=== PATIENT | female | born 1970 | race Caucasian/White ===

== ENCOUNTER → 2016-12-07 | Outpatient (CLI) | payer BC, OTHER ==
[~2016-12-07] MED LIST: OXYC-57 PO
--- NOTE | 2016-12-07 19:21 | DIAGNOSTIC IMAGING REPORT ---
MRI OF THE RIGHT SHOULDER CLINICAL HISTORY: Right shoulder pain. COMPARISON STUDY: No priors. TECHNIQUE: MRI of the right shoulder was performed utilizing various T1 and T2 weighted sequences in the axial, sagittal, coronal planes. IV contrast was not administered for this examination. Note that interpretation is suboptimal without plain film correlate. The examination is degraded by motion artifact. FINDINGS: Rotator cuff: There is tendinopathy with partial-thickness tearing of the supraspinatous tendon. No full-thickness tear is seen. The infraspinatus shows similar findings. There is also thickening and partial-thickness tearing seen involving the subscapularis tendon, best seen on sagittal image #10. The teres minor tendon is intact. There is trace subacromial and subdeltoid bursal fluid. The acromioclavicular joint is unremarkable. Biceps tendon: The long head of the biceps tendon is normal in signal intensity and located within the bicipital groove. The anchor is maintained. Labrum: Grossly intact. Shoulder joint: There is no joint effusion. The articular cartilage over the glenoid is well maintained. There is mild arthritic change marrow edema seen within the anterior aspect of the humeral head. There is no MRI evidence of fracture. Musculature and soft tissues: There is mild edema within the body of the infraspinatus. No muscular atrophy is seen. IMPRESSION: 1. Motion degraded examination. 2. There is tendinopathy with partial-thickness tearing of the supraspinatous and infraspinatus tendons. No clear full-thickness tear is seen. There is no musculotendinous retraction. 3. There is also partial tearing of the subscapularis tendon. 4. Moderate arthritic changes present in the humeral head. 5. Mild intramuscular edema is seen within the body of infraspinatus. No muscular atrophy is seen. Electronically signed by: Darnell Navarro M.D. 12/07/2016 7:18 PM Dictated Date/Time: 12/07/2016 7:12 PM
== END | disposition home or self-care (01) ==
LOC: C.MRI 18:00
PROVIDERS: ATTEND Chiropractor
DX: S46.011A Strain of muscle(s) and tendon(s) of the rotator cuff of right shoulder, initial encounter (principal); M75.41 Impingement syndrome of right shoulder; M75.21 Bicipital tendinitis, right shoulder; X58.XXXA Exposure to other specified factors, initial encounter

== ENCOUNTER → 2017-03-18 | Outpatient (CLI) | payer BC, OTHER | END | disposition home or self-care (01) | LOC: C.PAPS 14:10 | PROVIDERS: ATTEND Physician Assistant | DX: Z01.419 Encounter for gynecological examination (general) (routine) without abnormal findings (principal) ==

== ENCOUNTER → 2017-03-18 | Outpatient (CLI) | payer BC, OTHER ==
[2017-03-18 12:25] LABS: MEAN CELL VOLUME 99.5 fL (80-100); MEAN CORPUSCULAR HEMOGLOBIN 33.5 pg (25-34); MEAN CORPUSCULAR HGB CONC 33.7 g/dl (32-36); MEAN PLATELET VOLUME 10.4 fL (7.4-10.4); PLATELET COUNT 324 K/uL (130-400); RED BLOOD COUNT 4.12 M/uL (4.2-5.4); WHITE BLOOD COUNT 5.81 K/uL (4.8-10.8)
[2017-03-18 13:05] LABS: PREG INTERNAL NEGATIVE QC NEG CLEAR BACKGROUND; PREG INTERNAL POSITIVE QC POS CONTROL LINE
== END | disposition home or self-care (01) ==
LOC: C.LAB1850 10:22
PROVIDERS: ATTEND Physician Assistant
DX: Z01.419 Encounter for gynecological examination (general) (routine) without abnormal findings (principal); N92.6 Irregular menstruation, unspecified